=== PATIENT | female | born 1945 | race Caucasian/White ===

== ENCOUNTER 2017-02-03 15:20 | Day surgery (SDC) | payer MEDICARE, OTHER ==
[2017-02-03] VITALS (13 sets, daily range): BP systolic 144–205; BP diastolic 43–75; PULSE 46–62; RESP 9–18; Ht 154.9 cm; Wt 46.2 kg
[~2017-02-03] VITALS: Ht 154.9 cm; Wt 46.2 kg
[~2017-02-03 15:20] MED LIST: ASPI325T4 PO; CEFAZOLIN 1 GM INJ ONE; FOLI-49 PO; HYDR-3672 PO; INSU100C SQ; LOPE1LIQ33 PO; LOSA50TA6 PO; METO-448 PO; MYCO360T PO; NEPH PO; OMEP20CA16 PO; PRED1TAB2 PO; SOLI5TAB5 PO; TACR1CAP PO; [UNRECOGNIZED DRUG - OTHER]
[2017-02-03 16:40] LABS: ADD SCAN DIFF NO
[2017-02-03 16:46] LABS: ABNORMAL IP MESSAGE 1; BASOPHILS % 0.1 % (0.0-2.0); EOSINOPHILS % 0.1 % (0.0-7.0); HEMOGLOBIN 10.2 g/dl (12.0-16.0); LYMPHOCYTES # 0.5 10^3/ul (0.8-2.9); LYMPHOCYTES % 5.9 % (15.0-51.0); MEAN CORPUSCULAR HEMOGLOBIN 29.6 pg (29.0-33.0); MEAN CORPUSCULAR HGB CONC 32.9 g/dl (32.0-37.0); MEAN CORPUSCULAR VOLUME 89.9 fl (82.0-101.0); MEAN PLATELET VOLUME 9.9 fl (7.4-10.4); MONOCYTE # 0.5 10^3/ul (0.3-0.9); MONOCYTES % 5.6 % (0.0-11.0); NEUTROPHILS % 87.8 % (39.0-77.0); PLATELET COUNT 316 10^3/UL (140-415); RED BLOOD COUNT 3.45 10^6/ul (4.20-5.40); RED CELL DISTRIBUTION WIDTH 17.4 % (11.5-14.5); WHITE BLOOD COUNT 9.2 10^3/ul (4.8-10.8)
[2017-02-03] MEDS ORDERED: BUPIVACAINE 0.25%/EPI (SDV) 30 ML INJ ONE (16:46)
[2017-02-03 16:59] LABS: INR 1.09; PROTIME 14.1 Sec (12.2-14.2); PT RATIO 1.1
[2017-02-03 17:00] LABS: ALBUMIN 3.7 g/dl (3.3-4.9); ALBUMIN/GLOBULIN RATIO 1.54; BILIRUBIN,INDIRECT 0.1 mg/dl (0-1.1); BILIRUBIN,TOTAL 0.1 mg/dl (0.2-1.3); PARTIAL THROMBOPLASTIN TIME 31.6 Sec (25.0-35.0); TOTAL PROTEIN 6.1 g/dl (6.1-8.1)
[2017-02-03 17:01] LABS: CALCIUM 8.7 mg/dl (8.4-10.2); CREATININE 0.39 mg/dl (0.44-1.00); POTASSIUM 4.1 mmol/L (3.5-5.1)
[2017-02-03] MEDS ORDERED: SODI1TAB42 PO (17:17)
[2017-02-03] MEDS ORDERED: ALPR0.254 PO (17:17)
[2017-02-03] MEDS ORDERED: ATOR10TA65 PO (17:17)
[2017-02-03] MEDS ORDERED: PROPOFOL 40 ML ONE (17:29)
[2017-02-03] MEDS ORDERED: LIDOCAINE 2% (SDV) 5 ML INJ ONE (17:29)
[2017-02-03] MEDS ORDERED: FENTAnyl 50 MCG/ML VIAL ONE (17:30)
[2017-02-03] MEDS ORDERED: LIDOCAINE 2% (MDV) 20 ML INJ ONE (17:36)
[2017-02-03] MEDS ORDERED: BUPIVACAINE 0.5% (SDV) 30 ML INJ ONE (17:36)
--- NOTE | 2017-02-03 17:37 | HPN ---
Date/Time of Note Date/Time of Note DATE: 02/03/17 TIME: 17:36 Interval H&P Admission Note Pt. seen H&P reviewed: No system changes NICOLE MCBRIDE DPM Feb 03, 2017 17:37
[2017-02-03] MEDS ORDERED: ONDANSETRON 4 MG INJ IV PRN (18:00)
[2017-02-03] MEDS ORDERED: FENTAnyl 50 MCG/ML VIAL IV PRN ×2 (18:00)
[2017-02-03] MEDS ORDERED: HYDROmorphONE (0.2 MG/ML) 10ML SYG IV PRN ×2 (18:00)
[2017-02-03] MEDS ORDERED: MEPERIDINE 25 MG INJ IV PRN (18:00)
[2017-02-03] MEDS ORDERED: EPHEDrine SULFATE 50 MG/5 ML SYG IV PRN (18:00)
[2017-02-03] MEDS ORDERED: OXYCODONE/ACETAMINOPHEN (5/325) TAB PO PRN ×2 (18:00)
[2017-02-03] MEDS ORDERED: hydrALAzine 20 MG INJ IV PRN (18:00)
[2017-02-03] MEDS ORDERED: DIPHENHYDRAMINE 50 MG INJ IV PRN (18:00)
[2017-02-03] MEDS ORDERED: LABETALOL HCL 20MG INJ IV PRN (18:00)
[2017-02-03] MEDS ORDERED: HYDROCORTISONE 100 MG INJ ONE (18:03)
--- NOTE | 2017-02-03 18:10 | RADRPT ---
PROCEDURE: XR Chest. CLINICAL INDICATION: Preoperative. TECHNIQUE: Single frontal view. COMPARISON: 04/14/2016. FINDINGS: The lungs are clear. The heart is enlarged. There is calcification in the aorta consistent with atherosclerosis. There is no pleural effusion. There is no pneumothorax. IMPRESSION: 1. Cardiomegaly and atherosclerosis. 2. Otherwise normal chest x-ray. RPTAT: QQ .Jared Rahman MD, MD Date Time Electronically viewed and signed by .Jared Rahman MD, on 02/03/2017 18:09 .R/
--- NOTE | 2017-02-03 18:17 | RADRPT ---
PROCEDURE: XR Foot. CLINICAL INDICATION: Preoperative examination , gangrene TECHNIQUE: AP and lateral views of the left foot was obtained. The images were reviewed on a PACS workstation. COMPARISON: None. FINDINGS: There is diffuse bony demineralization. There is an eroded appearance of the first digit distal pha lanx, with overlying subcutaneous gas. The remainder of the osseous structures appear to be intact. Joints are normally aligned. There is extensive peripheral arterial calcification. IMPRESSION: 1. Destructive changes involving the first digit distal phalanx with overlying soft tissue swelling and subcutaneous gas, consistent with provided history of gangrene. 2. Bony demineralization. Extensive peripheral arterial calcification. RPTAT: DD .Torsten Altman MD, MD Date Time Electronically viewed and signed by .Torsten Altman MD, on 02/03/2017 18:17 .T/
--- NOTE | 2017-02-03 18:19 | RADRPT ---
PROCEDURE: XR Foot. CLINICAL INDICATION: Gangrene, preoperative examination TECHNIQUE: AP, lateral and oblique views of the right foot was obtained. The images were reviewed on a PACS workstation. COMPARISON: None. FINDINGS: The bones of the foot appear intact, with no evidence of fracture, dislocation, or subluxation. The joint spaces are preserved. There is diffuse bony demineralization. There is peripheral arterial ca lcification. There is a small plantar calcaneal spur. No significant soft tissue swelling is seen. IMPRESSION: 1. Bony demineralization. Peripheral arterial calcification. 2. Small plantar calcaneal spur. 3. Definite bony erosive or destructive changes are not identified. RPTAT: DD .Torsten Altman MD, MD Date Time Electronically viewed and signed by .Torsten Altman MD, on 02/03/2017 18:19 .T/
--- NOTE | 2017-02-05 10:11 | RADRPT ---
Vent Rate: 59 bpm RR Interval: 0 msec SC Interval: 150 msec QRS Duration: 72 msec QT Interval: 442 msec QTC Interval: 437 msec P-R-T [place]: 43 - 12 - 77 degrees Sinus bradycardia Otherwise normal ECG Electronically Signed By: Jewel Yen [id number]
--- NOTE | 2017-02-05 13:09 | OPR ---
DATE OF OPERATION: 02/03/2017 SURGEON: Nicole Bennett DPM ANESTHESIOLOGIST: Dr. Dozier ANESTHESIA: Local with IV sedation. PREOPERATIVE DIAGNOSES: 1. Gangrene, left hallux. 2. Gangrene, right hallux, second digit and third digits POSTOPERATIVE DIAGNOSES: 1. Gangrene, left hallux. 2. Gangrene, right hallux, second digit and third digit. PROCEDURES PERFORMED: 1. Amputation of right hallux, second digit and third digit. 2. Amputation of left hallux. DESCRIPTION OF PROCEDURE: The patient was brought into the operating room, placed on the table in a secure supine position. Cardiac monitoring, IV sedation, and an ankle pneumatic tourniquet were ut ilized for this case. Preoperatively, a total of 20 mL of 0.5% Marcaine plain mixed with 2% lidocai ne plain were infiltrated into the bilateral feet into a local block. Upon achieving anesthesia, th e feet were prepped and draped in the usual sterile manner. We turned our attention to the right fo ot for procedure #1, amputation of the right hallux, second and third digits. Circumferential incis ions were performed with a #15 scalpel surrounding the right hallux along the necrotic skin edges. The necrotic tissue from the IP joint of the right hallux distally was disarticulated and sent for g ross specimen. The plantar flap which appears to be viable. Good bleeding tissue was noted intraop eratively. The viable flap was dorsally sutured into the proximal skin. The sutures used were 4-0 Vicryl simple interrupted sutures and 4-0 nylon simple interrupted sutures, prior to closure copious ly lavaged with sterile saline and bacitracin solution was performed. The integrity of the bone was found to be satisfactory. Next, we turned our attention to the 2nd and 3rd digits. Again, circumf erential incisions were performed surrounding necrotic digits which were removed and disarticulated at the metatarsophalangeal joints. The surgical site was irrigated with sterile saline mixed with b acitracin solution. It should be noted that EpiFix graft was placed over the metatarsal heads as we ll as the proximal phalanx of the right hallux to facilitate healing. The surgical site, the subcut aneous tissue was closed with 4-0 Vicryl simple interrupted sutures and 4-0 nylon simple interrupted sutures. The dressing consisted of Xeroform gauze, 4 x 4 gauze, 4-inch Kerlix roll. Paper tape wa s utilized. No Coban was utilized due to the compromised circulation. We now turned our attention to the left foot for procedure #2, amputation of the left hallux. Again, a circumferential incision was placed with a #15 scalpel surrounding the left hallux. The distal phalanx was removed and part ial resection of the proximal phalanx was also performed. The surgical site was irrigated with ster ile saline mixed with bacitracin solution. The subcutaneous tissue was closed with 4-0 Vicryl simpl e interrupted sutures and the skin edges were reapproximated with 4-0 nylon simple interrupted stitc hes. The patient tolerated the above procedure well with vital signs stable and satisfactory. Agai n, good intraoperative bleeding was noted which would facilitate healing. The patient had no intrao perative complications. The patient will follow up 1 week postop. Dictated By: NICOLE DALTON Conf#: [id number] DID#: [id number]
== END 2017-02-03 20:04 | disposition home or self-care (01) ==
LOC: SDS 15:20
PROVIDERS: ATTEND Podiatrist Primary Podiatric Medicine
DX: I96 Gangrene, not elsewhere classified (principal); K21.9 Gastro-esophageal reflux disease without esophagitis; I10 Essential (primary) hypertension; Z94.0 Kidney transplant status
CPT/HCPCS: 28160; 28820; 28825; 71010; 73620; 80053; 82962; 85025; 85610; 85730; 88305; 93005; J0360; J0690; J1720; J3010; L3260